=== PATIENT | female | born 1965 | race Caucasian/White ===

== ENCOUNTER 2018-03-25 09:48 | Emergency (ER) | END 2018-03-25 11:47 | disposition home or self-care (01) ==

== ENCOUNTER 2019-05-27 13:40 | Emergency (ER) | payer MEDICAID, OTHER ==
[~2019-05-27] VITALS: Ht 154.9 cm; Wt 88.5 kg
[~2019-05-27 13:40] MED LIST: CLOT30CR24 TOP; FLUC150T PO; NITR-58 PO
[2019-05-27 13:58] VITALS: BP 153/68; PULSE 98; RESP 18; Ht 154.9 cm; Wt 88.5 kg
== END 2019-05-27 15:34 | disposition home or self-care (01) ==
LOC: FTE 13:40
DX: R30.0 Dysuria (principal); E11.9 Type 2 diabetes mellitus without complications
CPT/HCPCS: 81003; 82962; Z7502; 99282